=== PATIENT | male | born 1935 | race Caucasian/White ===

== ENCOUNTER 2021-06-14 10:57 | Inpatient (IN) ==
[2021-06-14] MEDS ORDERED: Cholestyramine 4 GM POWD.PACK PO PRN (19:20)
[2021-06-14] MEDS: Acyclovir 200 MG CAPSULE PO SCH (21:58)
[2021-06-15] MEDS: Levothyroxine 25 MCG TABLET PO SCH (06:41)
[2021-06-15 08:13] LABS: Basophils % 0.1 %; Eosinophils # 0.1 K/mcL (0.0-0.6); Eosinophils % 1.7 %; Hematocrit 26.4 % (37.5-50.1); Hemoglobin 8.6 g/dL (12.9-16.9); Immature Granulocytes % 0.3 % (0-4); Lymphocytes # 0.6 K/mcL (0.6-4.6); Lymphocytes % 8.8 %; Mean Corpuscular HGB Conc 32.6 g/dL (31.6-35.5); Mean Corpuscular Hemoglobin 30.9 pg (28.0-33.3); Mean Platelet Volume 11.3 fL (9.4-12.4); Monocytes # 0.4 K/mcL (0.0-1.3); Monocytes % 5.9 %; Platelet Count 133 K/mcL (140-400); Red Blood Count 2.78 M/mcL (4.19-5.50); Red Cell Distribution Width 21.2 % (11.5-14.5); Segmented Neutrophils % 83.2 %; White Blood Count 7.2 K/mcL (4.3-11.1)
[2021-06-15 08:44] LABS: BUN/Creatinine Ratio 11 (6-26); Blood Urea Nitrogen 11 mg/dL (8-23); Calcium 6.8 mg/dL (8.6-10.3); Carbon Dioxide 24 mEq/L (23-29); Chloride 107 mEq/L (98-107); Glucose 91 mg/dL (70-105); Osmolality,Calculated 287 (280-300); Potassium 2.5 mEq/L (3.5-5.1); Sodium 139 mEq/L (136-145); eGFR For African Americans > 60 (> 60); eGFR For Non-African Americans > 60 (> 60)
[2021-06-15] MEDS: Loratadine 10 MG TABLET PO SCH (09:28)
[2021-06-15] MEDS: Acyclovir 200 MG CAPSULE PO SCH ×3 (09:28→21:15)
[2021-06-15] MEDS: PARoxetine 10 MG TABLET PO SCH (09:28)
[2021-06-15] MEDS: Cyanocobalamin (B-12) 1,000 MCG TABLET PO SCH (09:29)
[2021-06-15] MEDS: amLODIPine 5 MG TABLET PO SCH (09:29)
[2021-06-15] MEDS: Cholecalciferol (D-3) 1,000 UNIT (25MCG) TABLET PO SCH (09:29)
[2021-06-15] MEDS: atenoloL 50 MG TABLET PO SCH (09:29)
[2021-06-15] MEDS: Magic Mouthwash 10 ML UD Cup PO SCH ×3 (09:47→21:07)
[2021-06-15] MEDS ORDERED: 0.9 % Sodium Chloride 1,000 ML ONE (12:32)
[2021-06-15 14:15] LABS: BUN/Creatinine Ratio 12 (6-26); Blood Urea Nitrogen 12 mg/dL (8-23); Carbon Dioxide 25 mEq/L (23-29); Chloride 107 mEq/L (98-107); Glucose 108 mg/dL (70-105); Osmolality,Calculated 288 (280-300); Sodium 139 mEq/L (136-145); eGFR For African Americans > 60 (> 60); eGFR For Non-African Americans > 60 (> 60)
[2021-06-15] MEDS: Magnesium Oxide 400 MG TABLET PO SCH (21:15)
[2021-06-16] MEDS: Levothyroxine 25 MCG TABLET PO SCH (06:44)
[2021-06-16] MEDS: atenoloL 50 MG TABLET PO SCH (10:28)
[2021-06-16] MEDS: Nystatin SUSP 5 ML UD.LIQ PO SCH ×4 (10:28→20:59)
[2021-06-16] MEDS: Acyclovir 200 MG CAPSULE PO SCH ×3 (10:28→20:59)
[2021-06-16] MEDS: Magnesium Oxide 400 MG TABLET PO SCH ×2 (10:29→21:00)
[2021-06-16] MEDS: amLODIPine 5 MG TABLET PO SCH (10:29)
[2021-06-16] MEDS: PARoxetine 10 MG TABLET PO SCH (10:29)
[2021-06-16] MEDS: Cyanocobalamin (B-12) 1,000 MCG TABLET PO SCH (10:29)
[2021-06-16] MEDS: Loratadine 10 MG TABLET PO SCH (10:29)
[2021-06-16] MEDS: Cholecalciferol (D-3) 1,000 UNIT (25MCG) TABLET PO SCH (10:29)
[2021-06-16 10:38] LABS: BUN/Creatinine Ratio 11 (6-26); Blood Urea Nitrogen 10 mg/dL (8-23); Calcium 6.8 mg/dL (8.6-10.3); Carbon Dioxide 24 mEq/L (23-29); Chloride 109 mEq/L (98-107); Glucose 117 mg/dL (70-105); Magnesium 1.5 mg/dL (1.6-2.6); Osmolality,Calculated 290 (280-300); Potassium 3.4 mEq/L (3.5-5.1); Sodium 140 mEq/L (136-145); eGFR For African Americans > 60 (> 60); eGFR For Non-African Americans > 60 (> 60)
[2021-06-17] MEDS: Levothyroxine 25 MCG TABLET PO SCH (06:37)
[2021-06-17] MEDS: Nystatin SUSP 5 ML UD.LIQ PO SCH ×4 (11:32→20:10)
[2021-06-17] MEDS: Acyclovir 200 MG CAPSULE PO SCH ×3 (11:32→20:09)
[2021-06-17] MEDS: Magnesium Oxide 400 MG TABLET PO SCH (11:33)
[2021-06-17] MEDS: PARoxetine 10 MG TABLET PO SCH (11:33)
[2021-06-17] MEDS: Cyanocobalamin (B-12) 1,000 MCG TABLET PO SCH (11:33)
[2021-06-17] MEDS: amLODIPine 5 MG TABLET PO SCH (11:33)
[2021-06-17] MEDS: Loratadine 10 MG TABLET PO SCH (11:33)
[2021-06-17] MEDS: atenoloL 50 MG TABLET PO SCH (11:33)
[2021-06-17] MEDS: Cholecalciferol (D-3) 1,000 UNIT (25MCG) TABLET PO SCH (11:33)
[2021-06-18] MEDS: Levothyroxine 25 MCG TABLET PO SCH (05:07)
[2021-06-18 09:04] LABS: % Iron Saturation 20 % (20-55); Iron 41 mcg/dL (65-175); Transferrin 146 mg/dL (203-362)
[2021-06-18] MEDS: Nystatin SUSP 5 ML UD.LIQ PO SCH ×3 (09:10→18:07)
[2021-06-18] MEDS: atenoloL 50 MG TABLET PO SCH (09:11)
[2021-06-18] MEDS: Acyclovir 200 MG CAPSULE PO SCH ×3 (09:11→20:58)
[2021-06-18] MEDS: Potassium Chloride Elixir 20 MEQ/15 ML UDC PO SCH (09:11)
[2021-06-18] MEDS: PARoxetine 10 MG TABLET PO SCH (09:12)
[2021-06-18] MEDS: Cholecalciferol (D-3) 1,000 UNIT (25MCG) TABLET PO SCH (09:12)
[2021-06-18] MEDS: Cyanocobalamin (B-12) 1,000 MCG TABLET PO SCH (09:12)
[2021-06-18] MEDS: Loratadine 10 MG TABLET PO SCH (09:12)
[2021-06-18] MEDS: amLODIPine 5 MG TABLET PO SCH (09:12)
[2021-06-18 09:30] LABS: Folate 4.1 ng/mL (3.0-16.0)
[2021-06-18 09:46] LABS: Vitamin B12 > 1500 pg/mL (250-1100)
[2021-06-18 11:52] LABS: Basophils % 0.4 %; Eosinophils # 0.1 K/mcL (0.0-0.6); Hematocrit 28.6 % (37.5-50.1); Hemoglobin 9.4 g/dL (12.9-16.9); Immature Granulocytes % 0.3 % (0-4); Lymphocytes # 0.7 K/mcL (0.6-4.6); Lymphocytes % 9.6 %; Mean Corpuscular HGB Conc 32.9 g/dL (31.6-35.5); Mean Corpuscular Hemoglobin 31.4 pg (28.0-33.3); Mean Corpuscular Volume 95.7 fL (83.0-100.0); Mean Platelet Volume 10.9 fL (9.4-12.4); Monocytes # 0.4 K/mcL (0.0-1.3); Neutrophils # 5.8 K/mcL (1.6-8.9); Platelet Count 189 K/mcL (140-400); Red Blood Count 2.99 M/mcL (4.19-5.50); Red Cell Distribution Width 19.9 % (11.5-14.5); Segmented Neutrophils % 82.7 %
[2021-06-18] MEDS ORDERED: Isovue-370 500 ML BOTTLE IVP ONE (15:30)
[2021-06-18 17:28] LABS: Influenza A PCR Negative (Negative); Influenza B PCR Negative (Negative); Resp. Syncytial Virus PCR Negative (Negative)
[2021-06-18 17:38] LABS: SARS-CoV-2 by PCR (In House) Negative (Negative)
[2021-06-18] MEDS: Furosemide 20 MG TABLET PO SCH (18:07)
[2021-06-19] MEDS: Levothyroxine 25 MCG TABLET PO SCH (05:44)
[2021-06-19] MEDS: Potassium Chloride Elixir 20 MEQ/15 ML UDC PO SCH (09:21)
[2021-06-19] MEDS: Nystatin SUSP 5 ML UD.LIQ PO SCH ×4 (09:21→21:02)
[2021-06-19] MEDS: Furosemide 20 MG TABLET PO SCH ×2 (09:21→17:41)
[2021-06-19] MEDS: PARoxetine 10 MG TABLET PO SCH (09:22)
[2021-06-19] MEDS: Loratadine 10 MG TABLET PO SCH (09:22)
[2021-06-19] MEDS: atenoloL 50 MG TABLET PO SCH (09:22)
[2021-06-19] MEDS: Cholecalciferol (D-3) 1,000 UNIT (25MCG) TABLET PO SCH (09:22)
[2021-06-19] MEDS: Acyclovir 200 MG CAPSULE PO SCH ×3 (09:22→21:02)
[2021-06-19] MEDS: amLODIPine 5 MG TABLET PO SCH (09:22)
[2021-06-19] MEDS: Cyanocobalamin (B-12) 1,000 MCG TABLET PO SCH (09:24)
[2021-06-20] MEDS: Levothyroxine 25 MCG TABLET PO SCH (06:31)
[2021-06-20 08:09] LABS: Hematocrit 29.8 % (37.5-50.1); Hemoglobin 9.8 g/dL (12.9-16.9); Mean Corpuscular HGB Conc 32.9 g/dL (31.6-35.5); Mean Corpuscular Hemoglobin 30.9 pg (28.0-33.3); Mean Platelet Volume 10.5 fL (9.4-12.4); Platelet Count 203 K/mcL (140-400); Red Blood Count 3.17 M/mcL (4.19-5.50); Red Cell Distribution Width 19.6 % (11.5-14.5); White Blood Count 4.7 K/mcL (4.3-11.1)
[2021-06-20 08:31] LABS: BUN/Creatinine Ratio 11 (6-26); Blood Urea Nitrogen 10 mg/dL (8-23); Calcium 6.8 mg/dL (8.6-10.3); Carbon Dioxide 24 mEq/L (23-29); Chloride 106 mEq/L (98-107); Glucose 92 mg/dL (70-105); Osmolality,Calculated 285 (280-300); Potassium 2.6 mEq/L (3.5-5.1); Sodium 138 mEq/L (136-145); eGFR For African Americans > 60 (> 60); eGFR For Non-African Americans > 60 (> 60)
[2021-06-20] MEDS: amLODIPine 5 MG TABLET PO SCH (09:39)
[2021-06-20] MEDS: Nystatin SUSP 5 ML UD.LIQ PO SCH ×4 (09:39→20:02)
[2021-06-20] MEDS: Potassium Chloride Elixir 20 MEQ/15 ML UDC PO SCH ×3 (09:39→20:00)
[2021-06-20] MEDS: Cyanocobalamin (B-12) 1,000 MCG TABLET PO SCH (09:40)
[2021-06-20] MEDS: Furosemide 20 MG TABLET PO SCH ×2 (09:40→16:02)
[2021-06-20] MEDS: Cholecalciferol (D-3) 1,000 UNIT (25MCG) TABLET PO SCH (09:40)
[2021-06-20] MEDS: Acyclovir 200 MG CAPSULE PO SCH ×3 (09:40→20:00)
[2021-06-20] MEDS: Loratadine 10 MG TABLET PO SCH (09:40)
[2021-06-20] MEDS: PARoxetine 10 MG TABLET PO SCH (09:40)
[2021-06-20] MEDS: atenoloL 50 MG TABLET PO SCH (09:40)
[2021-06-20] MEDS ORDERED: QUEtiapine Fumarate 25 MG TABLET PO STA (15:38)
[2021-06-20] MEDS ORDERED: Haloperidol Lactate 5 MG/ML VIAL IVP PRN (16:03)
[2021-06-20] MEDS: QUEtiapine Fumarate 25 MG TABLET PO SCH (20:00)
[2021-06-21] MEDS: Levothyroxine 25 MCG TABLET PO SCH (05:37)
[2021-06-21] MEDS: amLODIPine 5 MG TABLET PO SCH (10:22)
[2021-06-21] MEDS: Loratadine 10 MG TABLET PO SCH (10:22)
[2021-06-21] MEDS: Nystatin SUSP 5 ML UD.LIQ PO SCH ×4 (10:22→20:11)
[2021-06-21] MEDS: Acyclovir 200 MG CAPSULE PO SCH ×3 (10:22→20:11)
[2021-06-21] MEDS: PARoxetine 10 MG TABLET PO SCH (10:23)
[2021-06-21] MEDS: Furosemide 20 MG TABLET PO SCH ×2 (10:23→17:04)
[2021-06-21] MEDS: atenoloL 50 MG TABLET PO SCH (10:23)
[2021-06-21] MEDS: Cholecalciferol (D-3) 1,000 UNIT (25MCG) TABLET PO SCH (10:23)
[2021-06-21] MEDS: Cyanocobalamin (B-12) 1,000 MCG TABLET PO SCH (10:23)
[2021-06-21] MEDS: QUEtiapine Fumarate 25 MG TABLET PO SCH (20:11)
[2021-06-22] MEDS: Levothyroxine 25 MCG TABLET PO SCH (06:04)
[2021-06-22] MEDS: 0.9 % Sodium Chloride 1,000 ML IVC SCH ×2 (07:24→10:25)
[2021-06-22 09:12] VITALS: RESP 18
[2021-06-22] MEDS: Furosemide 20 MG TABLET PO SCH ×2 (10:09→17:40)
[2021-06-22] MEDS: Loratadine 10 MG TABLET PO SCH (10:09)
[2021-06-22] MEDS: amLODIPine 5 MG TABLET PO SCH (10:09)
[2021-06-22] MEDS: Cyanocobalamin (B-12) 1,000 MCG TABLET PO SCH (10:10)
[2021-06-22] MEDS: atenoloL 50 MG TABLET PO SCH (10:10)
[2021-06-22] MEDS: Nystatin SUSP 5 ML UD.LIQ PO SCH ×4 (10:10→19:51)
[2021-06-22] MEDS: PARoxetine 10 MG TABLET PO SCH (10:10)
[2021-06-22] MEDS: Cholecalciferol (D-3) 1,000 UNIT (25MCG) TABLET PO SCH (10:10)
[2021-06-22] MEDS: haloperidoL 1 MG TABLET PO PRN ×2 (14:02→23:14)
[2021-06-22] MEDS: QUEtiapine Fumarate 25 MG TABLET PO SCH (19:50)
[2021-06-22] MEDS ORDERED: Saline Nasal Spray 44 ML BOTTLE NS PRN (21:52)
[2021-06-23] MEDS: Levothyroxine 25 MCG TABLET PO SCH (06:22)
[2021-06-23] MEDS: 0.9 % Sodium Chloride 1,000 ML IVC SCH ×2 (07:43→09:49)
[2021-06-23 07:54] LABS: Hematocrit 30.9 % (37.5-50.1); Hemoglobin 10.1 g/dL (12.9-16.9); Mean Corpuscular HGB Conc 32.7 g/dL (31.6-35.5); Mean Corpuscular Hemoglobin 30.9 pg (28.0-33.3); Mean Corpuscular Volume 94.5 fL (83.0-100.0); Platelet Count 206 K/mcL (140-400); Red Blood Count 3.27 M/mcL (4.19-5.50); Red Cell Distribution Width 19.2 % (11.5-14.5); White Blood Count 7.5 K/mcL (4.3-11.1)
[2021-06-23 08:29] LABS: BUN/Creatinine Ratio 10 (6-26); Blood Urea Nitrogen 11 mg/dL (8-23); Calcium 6.5 mg/dL (8.6-10.3); Carbon Dioxide 28 mEq/L (23-29); Chloride 103 mEq/L (98-107); Glucose 98 mg/dL (70-105); Magnesium 0.9 mg/dL (1.6-2.6); Osmolality,Calculated 289 (280-300); Potassium 2.5 mEq/L (3.5-5.1); Sodium 140 mEq/L (136-145); eGFR For African Americans > 60 (> 60); eGFR For Non-African Americans > 60 (> 60)
[2021-06-23] MEDS: PARoxetine 10 MG TABLET PO SCH (09:48)
[2021-06-23] MEDS: Nystatin SUSP 5 ML UD.LIQ PO SCH ×4 (09:48→20:17)
[2021-06-23] MEDS: amLODIPine 5 MG TABLET PO SCH (09:48)
[2021-06-23] MEDS: Cyanocobalamin (B-12) 1,000 MCG TABLET PO SCH (09:48)
[2021-06-23] MEDS: Cholecalciferol (D-3) 1,000 UNIT (25MCG) TABLET PO SCH (09:48)
[2021-06-23] MEDS: Furosemide 20 MG TABLET PO SCH ×2 (09:48→17:01)
[2021-06-23] MEDS: Potassium Chloride Elixir 20 MEQ/15 ML UDC PO SCH ×2 (09:48→20:18)
[2021-06-23] MEDS: atenoloL 50 MG TABLET PO SCH (09:48)
[2021-06-23] MEDS: Loratadine 10 MG TABLET PO SCH (09:49)
[2021-06-23] MEDS: Magnesium Oxide 400 MG TABLET PO SCH ×2 (09:49→20:19)
[2021-06-23] MEDS ORDERED: *HR* OxyCODONE Oral Soln 5 MG/5 ML UD.LIQ PO PRN (14:43)
[2021-06-23] MEDS: QUEtiapine Fumarate 25 MG TABLET PO SCH (20:19)
[2021-06-23] MEDS: haloperidoL 1 MG TABLET PO PRN (20:48)
[2021-06-24] MEDS: 0.9 % Sodium Chloride 1,000 ML IVC SCH (04:33)
[2021-06-24] MEDS: Levothyroxine 25 MCG TABLET PO SCH (05:47)
[2021-06-24 06:58] LABS: BUN/Creatinine Ratio 13 (6-26); Blood Urea Nitrogen 15 mg/dL (8-23); Calcium 6.7 mg/dL (8.6-10.3); Carbon Dioxide 27 mEq/L (23-29); Chloride 105 mEq/L (98-107); Glucose 112 mg/dL (70-105); Osmolality,Calculated 294 (280-300); Potassium 2.9 mEq/L (3.5-5.1); Sodium 141 mEq/L (136-145); eGFR For African Americans > 60 (> 60); eGFR For Non-African Americans 58 (> 60)
[2021-06-24] MEDS: Nystatin SUSP 5 ML UD.LIQ PO SCH ×3 (09:20→16:36)
[2021-06-24] MEDS: Potassium Chloride Elixir 20 MEQ/15 ML UDC PO SCH (09:20)
[2021-06-24] MEDS: Cholecalciferol (D-3) 1,000 UNIT (25MCG) TABLET PO SCH (09:22)
[2021-06-24] MEDS: Loratadine 10 MG TABLET PO SCH (09:22)
[2021-06-24] MEDS: haloperidoL 1 MG TABLET PO PRN (09:22)
[2021-06-24] MEDS: atenoloL 50 MG TABLET PO SCH (09:22)
[2021-06-24] MEDS: Furosemide 20 MG TABLET PO SCH ×2 (09:22→16:36)
[2021-06-24] MEDS: PARoxetine 10 MG TABLET PO SCH (09:22)
[2021-06-24] MEDS: amLODIPine 5 MG TABLET PO SCH (09:23)
[2021-06-24] MEDS: Magnesium Oxide 400 MG TABLET PO SCH (09:23)
[2021-06-24] MEDS: Cyanocobalamin (B-12) 1,000 MCG TABLET PO SCH (09:23)
[2021-06-24] MEDS ORDERED: QUEtiapine Fumarate 25 MG TABLET PO SCH ×2 (11:15→21:00)
[2021-06-24 18:42] VITALS: BP 131/56; PULSE 63; TEMP 97.5; O2SAT 96
== END 2021-06-24 18:54 | disposition short-term general hospital (02) | DRG 945 ==
LOC: INPPIK 20:23
PROVIDERS: ADMIT Family Medicine; ATTEND Family Medicine

== ENCOUNTER 2021-06-24 16:18 | Observation (INO) ==
[2021-06-24] MEDS ORDERED: Acetaminophen 325 MG TABLET PO PRN (16:34)
[2021-06-24] MEDS ORDERED: Naloxone 0.4 MG/ML INJ IVP PRN (16:34)
[2021-06-24] MEDS ORDERED: Ondansetron ODT 4 MG TAB.RAPDIS SL PRN (16:34)
[2021-06-24] MEDS ORDERED: Cholestyramine 4 GM POWD.PACK PO PRN (17:02)
[2021-06-24] MEDS: Potassium Chloride Elixir 20 MEQ/15 ML UDC PO SCH (22:05)
[2021-06-24] MEDS: QUEtiapine Fumarate 25 MG TABLET PO SCH (22:08)
[2021-06-24] MEDS: Magnesium Oxide 400 MG TABLET PO SCH (22:09)
[2021-06-25] MEDS: Levothyroxine 25 MCG TABLET PO SCH (05:19)
[2021-06-25 07:31] LABS: Hemoglobin 10.5 g/dL (12.9-16.9); Mean Corpuscular HGB Conc 31.8 g/dL (31.6-35.5); Mean Corpuscular Hemoglobin 30.6 pg (28.0-33.3); Mean Corpuscular Volume 96.2 fL (83.0-100.0); Mean Platelet Volume 11.1 fL (9.4-12.4); Platelet Count 205 K/mcL (140-400); Red Blood Count 3.43 M/mcL (4.19-5.50); White Blood Count 7.8 K/mcL (4.3-11.1)
[2021-06-25 08:15] LABS: BUN/Creatinine Ratio 15 (6-26); Blood Urea Nitrogen 17 mg/dL (8-23); Calcium 6.7 mg/dL (8.6-10.3); Carbon Dioxide 27 mEq/L (23-29); Chloride 105 mEq/L (98-107); Glucose 97 mg/dL (70-105); Osmolality,Calculated 293 (280-300); Potassium 3.1 mEq/L (3.5-5.1); Sodium 141 mEq/L (136-145); eGFR For African Americans > 60 (> 60); eGFR For Non-African Americans 59 (> 60)
[2021-06-25] MEDS: Potassium Chloride Elixir 20 MEQ/15 ML UDC PO SCH ×2 (09:58→18:07)
[2021-06-25] MEDS: Loratadine 10 MG TABLET PO SCH (09:59)
[2021-06-25] MEDS: atenoloL 50 MG TABLET PO SCH (09:59)
[2021-06-25] MEDS: PARoxetine 10 MG TABLET PO SCH (09:59)
[2021-06-25] MEDS: Magnesium Oxide 400 MG TABLET PO SCH ×2 (09:59→19:34)
[2021-06-25] MEDS: Cholecalciferol (D-3) 1,000 UNIT (25MCG) TABLET PO SCH (10:00)
[2021-06-25] MEDS: QUEtiapine Fumarate 25 MG TABLET PO SCH ×2 (10:00→19:34)
[2021-06-25] MEDS: Cyanocobalamin (B-12) 1,000 MCG TABLET PO SCH (10:00)
[2021-06-25] MEDS: amLODIPine 5 MG TABLET PO SCH (10:00)
[2021-06-25] MEDS: Nystatin SUSP 5 ML UD.LIQ PO SCH ×3 (12:29→19:38)
[2021-06-25] MEDS: Megestrol Acetate 400 MG/10 ML UDC PO SCH (13:36)
[2021-06-26] MEDS: Levothyroxine 25 MCG TABLET PO SCH (05:12)
[2021-06-26] MEDS: Cholecalciferol (D-3) 1,000 UNIT (25MCG) TABLET PO SCH (08:52)
[2021-06-26] MEDS: atenoloL 50 MG TABLET PO SCH (08:52)
[2021-06-26] MEDS: Cyanocobalamin (B-12) 1,000 MCG TABLET PO SCH (08:52)
[2021-06-26] MEDS: Loratadine 10 MG TABLET PO SCH (08:53)
[2021-06-26] MEDS: amLODIPine 5 MG TABLET PO SCH (08:53)
[2021-06-26] MEDS: Megestrol Acetate 400 MG/10 ML UDC PO SCH (08:53)
[2021-06-26] MEDS: Magnesium Oxide 400 MG TABLET PO SCH (08:53)
[2021-06-26] MEDS: QUEtiapine Fumarate 25 MG TABLET PO SCH (08:53)
[2021-06-26] MEDS: Nystatin SUSP 5 ML UD.LIQ PO SCH (08:54)
[2021-06-26] MEDS: Potassium Chloride Elixir 20 MEQ/15 ML UDC PO SCH (08:54)
[2021-06-26] MEDS: PARoxetine 10 MG TABLET PO SCH (08:55)
[2021-06-26 09:19] VITALS: BP 106/55; PULSE 67; RESP 18; TEMP 97.3; O2SAT 90
== END 2021-06-26 09:19 ==
LOC: INPPIK
PROVIDERS: ADMIT Internal Medicine; ATTEND Internal Medicine